=== PATIENT | male | born 1940 | race African-American/Black ===

== ENCOUNTER 2016-08-29 18:13 | Inpatient (IN) | payer MEDICARE ==
--- NOTE | ~2016-08-29 | DS ---
Discharge Summary [address] [place]. [address] NAME: APARNA DICKINSON JR : 40 STATUS : DIS IN PAT#: [id number] AGE: 75 ADM/REG DATE : 08/29/16 MR#: [id number] REPORT SERV DATE: 09/06/16 DICTATED BY: NGUYỄN DUARTE DATE: 09/05/16 REPORT STATUS : Draft TRANSCRIBED BY: MODL DATE: 09/05/16 ADMISSION DATE: 08/29/2016 DISCHARGE DATE: 09/05/2016 REASON FOR ADMISSION: Fall with rhabdomyolysis. HISTORY OF PRESENT ILLNESS: Please refer Dr. Jama's history and physical dated 08/29/2016 for complete details regarding the patient's admission. In brief, the patient is admitted to the Hospitalist Service for management of his fall and his rhabdo. HOSPITAL COURSE: The patient had an uncomplicated hospital course, seen by Dr. Jama and handed off to Dr. Rivera, who assumed care of this patient for the following week. He came in with a mildly elevated CPK of around 20 to 31. He was started on IV fluids. Discharge planning was delayed, as Dr. Rivera had issues reaching the daughter, who then was requesting for inpatient rehab. Physical Therapy evaluated the patient and recommended rehab. [facility] has finally accepted the patient on 09/05/2016, and the patient has reached maximal hospitalization and is stable for discharge. 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 No acute pathology. DISCHARGE MEDICATIONS: Include phenytoin 300 mg every morning. Spending over 30 minutes on discharge planning and coordination of care of Mr. Dickinson. He will be discharged to [facility] in a stable condition. SHERRI Nguyễn Duarte MD / [id number] CC: MD Sen Siddiqi Jr., M.D.
--- NOTE | ~2016-08-29 | HP ---
History And Physical [id number] [place]. [address] NAME: APARNA DICKINSON JR : 40 STATUS : ADM IN [facility]#: [id number] AGE: 75 ADM/REG DATE : 08/29/16 MR#: [id number] REPORT SERV DATE: 08/30/16 DICTATED BY: GUSTABO AGUILAR DATE: 08/29/16 REPORT STATUS : Draft TRANSCRIBED BY: MODL DATE: 08/29/16 DATE OF ADMISSION: 08/29/2016 CHIEF COMPLAINT: Fall at home. HISTORY OF PRESENT ILLNESS: This is a 75-year-old gentleman with history of BPH, possible seizures, CVAs, and possible dementia presenting with a fall at home. Please note, the patient is extremely poor historian and to make it worse the patient is slightly drowsy here in the ER. The patient is actually known to be a poor historian at baseline, according to previous existing medical records. This H and P are formulated from history gathered from ER staff as well as from careful review of the medical records. The patient apparently fell sometime during the day at home. The patient did not apparently lose consciousness, and the patient apparently did not have any pain, but he just sort of laid on the floor until he was found by his daughter. The patient's daughter decided to bring him to the ER for further evaluation and care. At the time of arrival to the ER, the patient did not have any acute complaints. Even during my encounter with the patient, the patient did not have any acute complaints. The patient is really not able to tell me how he went down and he is not able to tell me why he decided to just stay on the floor instead of trying to get up or call for help. In the ER, the patient was found to be afebrile and hemodynamically stable. Initial lab evaluation revealed benign electrolytes and CBC, but he did have elevated CPK level of 2031. CT of the head was nonacute and chest x-ray was nonacute. No other imaging was performed as the patient was not complaining of any focal pain, and the patient did not have any obvious injuries. Internal Medicine consultation was requested for admission of the patient for further evaluation and care. REVIEW OF SYSTEMS: Unable to be obtained from the patient at this time. MEDICATIONS: Dilantin 300 mg p.o. q.a.m. and that is apparently his only medication. ALLERGIES: NKDA. PAST MEDICAL HISTORY: 1. BPH with obstructive uropathy. 2. Seizures. 3. Questionable history of cerebrovascular accident. 4. C-spine stenosis status post C-spine laminectomy. PAST SURGICAL HISTORY: 1. C-spine laminectomy last year. 2. TURP also last year. 3. Although unclear, the patient has an anterior abdominal wall surgical scar. History And Physical [address] [address] NAME: APARNA DICKINSON JR : 40 STATUS : ADM IN PAT#: [id number] AGE: 75 ADM/REG DATE : 08/29/16 MR#: [id number] REPORT SERV DATE: 08/30/16 DICTATED BY: GUSTABO AGUILAR DATE: 08/29/16 REPORT STATUS : Draft TRANSCRIBED BY: MARIUSZ DATE: 08/29/16 FAMILY HISTORY: Unknown at this time. SOCIAL HISTORY: The patient apparently does not smoke or drink alcohol. The patient apparently lives at home by himself, and the patient's daughter helps with the patient's demented . The patient's daughter's phone #[phone] and her name is Shraddha. PHYSICAL EXAMINATION: VITAL SIGNS: Temperature 99.4, blood pressure 132/71, pulse 100, respiratory rate is 20, and saturating 94% on room air. NEUROLOGIC: The patient is alert, but really disoriented x3. The patient exhibits no focal neurologic deficits. The patient is able to move all four extremities freely. GENERAL: The patient is awake, but somnolent. The patient otherwise is in no acute distress, and he is semi-cooperative. NECK: No JVD. No lymphadenopathy. Normal thyroid. CHEST: No midline sternotomy scar and no tenderness to palpation. LUNGS: Clear to auscultation bilaterally with normal respiratory effort on room air. CARDIOVASCULAR: Slightly tachycardic, but otherwise, no murmurs, rubs, or gallops, and PMI is nondisplaced. ABDOMEN: Soft and nontender with active bowel sounds, and no organomegaly. EXTREMITIES: The patient has 2+ bilateral lower extremity pitting edema. Otherwise, no more distal pulses and no calf tenderness. SKIN: Clean, dry, warm, and intact. LABORATORY DATA: Sodium is 140, potassium 3.2, chloride 103, BUN 15, creatinine 1.23, glucose 107, calcium 7.9, and magnesium 1.8. White blood cell count is 6.5, hemoglobin 12.5, and platelets 174. INR is 1.2. CPK is 2031. Troponin is 0.07. Lactate is within normal limits. Dilantin level is within normal limits. Chest x-ray is personally interpreted and it is nonacute. CT of the head was also nonacute. ASSESSMENT: This is a 75-year-old gentleman with history of benign prostatic hypertrophy, seizures, probable dementia, and cerebrovascular accidents presenting with a fall at home. 1. Fall at home with no apparent injuries. There was no additional imaging performed in the ER, as the patient has had no focal complaints of pain and no obvious injuries. 2. Rhabdomyolysis from fall at home. 3. Probable baseline dementia, although, apparently he has not been formally diagnosed. 4. Questionable history of cerebrovascular accidents. 5. Questionable history of seizure. 6. Benign prostatic hypertrophy with obstructive uropathy. 7. C-spine stenosis status post laminectomy. PLAN: My plan is to admit the patient under telemetry monitoring. The patient will be given History And Physical [address] [place]. [address] NAME: ALOKAPARNA BORJA : 40 STATUS : ADM IN PAT#: [id number] AGE: 75 ADM/REG DATE : 08/29/16 MR#: [id number] REPORT SERV DATE: 08/30/16 DICTATED BY: GUSTABO AGUILAR DATE: 08/29/16 REPORT STATUS : Draft TRANSCRIBED BY: MODAmina DATE: 08/29/16 IV fluid resuscitation. The patient will be given a Raza and I will closely monitor in's and out's as well as electrolytes and CPK levels. The patient will also be seen by Physical Therapy. The patient will likely need rehab at discharge. Otherwise, for the rest of stable past medical conditions including seizures, I will continue home medications and/or monitor and treat as needed. Standard DVT prophylaxis. The patient is assumed to be full code at this time. The patient's PCP is unknown at this time. KAYLYN/MARIUSZ Gustabo Aguilar MD / [id number] CC: Sierra Rivera M.D.
--- NOTE | ~2016-08-29 | IDS ---
Interim Discharge Summary [facility] [address] [place]. [address] NAME: APARNA DICKINSON JR : 40 STATUS : ADM IN [facility]#: [id number] AGE: 75 ADM/REG DATE : 08/29/16 MR#: [id number] REPORT SERV DATE: 09/05/16 DICTATED BY: RYNE JONES DATE: 09/04/16 REPORT STATUS : Draft TRANSCRIBED BY: MARIUSZ DATE: 09/04/16 ADMISSION DATE: 08/29/2016 DISCHARGE DATE: DISCHARGE DIAGNOSES: 1. Rhabdomyolysis, acute, status post fall. 2. Debility. 3. History of seizure disorder. HOSPITAL COURSE: A 75 years old male with a past medical history of CVAs in the past as well as seizure disorder, was found on the floor by his daughter for an unknown amount of time. The patient denied having any loss of consciousness, but states that he slid and fell to the floor and denied hitting his head, and the patient was brought to the emergency department. Apparently, the patient lives alone but has a daughter who helps to assist him. The patient was found to have an elevated CPK of 2030 and admitted to the Hospitalist Service for acute rhabdo. Also, family wanted the patient to consider inpatient rehab for generalized weakness. The patient was hydrated appropriately. CPK improved. His home medications with antiepileptic medication also were continued. The patient also was seen by Physical Therapy, and currently at this time, he remains in the hospital awaiting rehab approval. The patient will be followed by Dr. Duarte who will attend to this patient's care. TRINA/MARIUSZ Ryne Jones M.D. / [id number]
[~2016-08-29 18:13] MED LIST: CIP2 PO; D100 PO; PCET PO; PROSCAR5 PO; PYR100B PO
[2016-08-29 18:20] LABS: BASOPHILS 0 %; EOSINOPHILS 0 %; HEMATOCRIT 37.4 % (40.0-51.0); HEMOGLOBIN 12.5 g/dL (13.6-17.8); IMMATURE GRANULOCYTES 0.3 %; IMMATURE GRANULOCYTES ABSOLUTE 0.02 10/3/uL (0.0-0.11); LYMPHOCYTES ABSOLUTE 0.98 10/3/uL (0.67-4.30); MEAN CORPUS HGB CONC 33.4 g/dL (32.0-36.0); MEAN CORPUSCULAR HEMOGLOB 31.9 pg (26.0-34.0); MEAN CORPUSCULAR VOLUME 95.4 fL (80-100); MEAN PLATELET VOLUME 9.1 fL (9.2-13.0); MONOCYTES 11.9 %; MONOCYTES ABSOLUTE 0.78 10/3/uL (0.21-1.20); NEUTROPHILS 72.8 %; NEUTROPHILS ABSOLUTE 4.76 10/3/uL (2.02-8.40); PLATELET COUNT 174 10/3/uL (150-400); RBC DISTRIBUTION WIDTH 13.4 % (12.0-16.0); RED CELL COUNT 3.92 10/6/uL (4.7-6.1); WHITE BLOOD CELLS 6.5 10/3/uL (4.5-10.5)
[2016-08-29 18:21] LABS: MANUAL DIFF NO %
[2016-08-29 18:28] LABS: INTERNATIONAL NORMAL RATI 1.2 UNITS (-); PARTIAL THROMBO TIME 28.7 SEC (22.5-37.2); PROTIME (NOT ORD) 15.1 SEC (12.0-14.5)
[2016-08-29 18:36] LABS: LACTATE 1.1 MMOL/L (0.3-2.4)
[2016-08-29 18:47] LABS: BUN (BLOOD UREA NITROGEN) 15 MG/DL (6-23); CALCIUM, SERUM 7.9 MG/DL (8.5-10.4); CHLORIDE, SERUM 103 MMOL/L (96-112); CO2 (CARBON DIOXIDE) 28 MMOL/L (24-34); CPK 2031 U/L (0-200); CREATININE 1.23 MG/DL (0.70-1.30); DILANTIN (PHENYTOIN) 15.5 MCG/ML (10.0-20.0); GFR AFRICAN AMERICAN 66 ML/MIN (>=60); GFR NON AFRICAN AMERICAN 57 ML/MIN (>=60); GLUCOSE, SERUM 107 MG/DL (60-99); POTASSIUM, SERUM 3.2 MMOL/L (3.5-5.3); SODIUM, SERUM 140 MMOL/L (135-148)
[2016-08-29 18:49] LABS: TROPONIN I 0.07 NG/ML (<0.05)
[2016-08-29 18:50] LABS: CHEST PAIN PROFILE TAT 0 Hrs 35 Mins
[2016-08-29] MEDS ORDERED: D100 PO (19:17)
[2016-08-30 02:37] LABS: TROPONIN I 0.05 NG/ML (<0.05); ULTRASENSITIVE TSH 1.43 MCIU/ML (0.358-3.740)
[2016-08-30 07:21] LABS: BASOPHILS 0.2 %; BASOPHILS ABSOLUTE 0.01 10/3/uL (0.0-0.16); EOSINOPHILS 0.4 %; EOSINOPHILS ABSOLUTE 0.02 10/3/uL (0.0-0.53); HEMATOCRIT 33.8 % (40.0-51.0); HEMOGLOBIN 11.2 g/dL (13.6-17.8); LYMPHOCYTES ABSOLUTE 1.19 10/3/uL (0.67-4.30); MEAN CORPUS HGB CONC 33.1 g/dL (32.0-36.0); MEAN CORPUSCULAR HEMOGLOB 31.7 pg (26.0-34.0); MEAN CORPUSCULAR VOLUME 95.8 fL (80-100); MEAN PLATELET VOLUME 9.2 fL (9.2-13.0); MONOCYTES 11.8 %; MONOCYTES ABSOLUTE 0.54 10/3/uL (0.21-1.20); NEUTROPHILS 61.6 %; NEUTROPHILS ABSOLUTE 2.81 10/3/uL (2.02-8.40); PLATELET COUNT 170 10/3/uL (150-400); RBC DISTRIBUTION WIDTH 13.6 % (12.0-16.0); RED CELL COUNT 3.53 10/6/uL (4.7-6.1); WHITE BLOOD CELLS 4.6 10/3/uL (4.5-10.5)
[2016-08-30 07:24] LABS: MANUAL DIFF NO %
[2016-08-30 07:47] LABS: A/G RATIO 0.6 (0.7-1.9); ALBUMIN 2.6 G/DL (3.5-5.0); ALKALINE PHOSPHATASE 68 U/L (45-117); BUN (BLOOD UREA NITROGEN) 15 MG/DL (6-23); CALCIUM, SERUM 7.4 MG/DL (8.5-10.4); CHLORIDE, SERUM 108 MMOL/L (96-112); CK-MB 10.9 NG/ML; CKMB INDEX (NOT ORD) 0.5; CO2 (CARBON DIOXIDE) 24 MMOL/L (24-34); CPK 2025 U/L (0-200); CREATININE 1.13 MG/DL (0.70-1.30); GFR AFRICAN AMERICAN 73 ML/MIN (>=60); GFR NON AFRICAN AMERICAN 63 ML/MIN (>=60); GLOBULIN 4.4 G/DL (2.5-4.1); GLUCOSE, SERUM 139 MG/DL (60-99); POTASSIUM, SERUM 3.3 MMOL/L (3.5-5.3); SGOT(AST) 59 U/L (5-40); SGPT(ALT) 30 U/L (5-65); SODIUM, SERUM 143 MMOL/L (135-148); TOTAL BILIRUBIN 0.5 MG/DL (0-1.2); TROPONIN I 0.06 NG/ML (<0.05)
[2016-08-31 07:16] LABS: CALCIUM, SERUM 7.6 MG/DL (8.5-10.4); CHLORIDE, SERUM 113 MMOL/L (96-112); CO2 (CARBON DIOXIDE) 25 MMOL/L (24-34); CPK 1396 U/L (0-200); CREATININE 1.01 MG/DL (0.70-1.30); GFR AFRICAN AMERICAN 84 ML/MIN (>=60); GFR NON AFRICAN AMERICAN 72 ML/MIN (>=60); POTASSIUM, SERUM 3.4 MMOL/L (3.5-5.3); SODIUM, SERUM 145 MMOL/L (135-148)
[2016-08-31 07:17] LABS: BUN (BLOOD UREA NITROGEN) 11 MG/DL (6-23); GLUCOSE, SERUM 96 MG/DL (60-99)
[2016-09-01 06:57] LABS: BUN (BLOOD UREA NITROGEN) 10 MG/DL (6-23); CALCIUM, SERUM 7.6 MG/DL (8.5-10.4); CHLORIDE, SERUM 111 MMOL/L (96-112); CO2 (CARBON DIOXIDE) 27 MMOL/L (24-34); GLUCOSE, SERUM 93 MG/DL (60-99); POTASSIUM, SERUM 3.9 MMOL/L (3.5-5.3); SODIUM, SERUM 143 MMOL/L (135-148)
[2016-09-01 07:03] LABS: CPK 879 U/L (0-200); CREATININE 1.01 MG/DL (0.70-1.30); GFR AFRICAN AMERICAN 84 ML/MIN (>=60); GFR NON AFRICAN AMERICAN 72 ML/MIN (>=60)
== END 2016-09-05 17:07 | DRG 558 ==
LOC: ER 18:13 → 7NO 21:10
PROVIDERS: Internal Medicine; Specialist
DX: M62.82 Rhabdomyolysis (principal); F03.90 Unspecified dementia, unspecified severity, without behavioral disturbance, psychotic disturbance, mood disturbance, and anxiety; G40.909 Epilepsy, unspecified, not intractable, without status epilepticus; N40.0 Benign prostatic hyperplasia without lower urinary tract symptoms; E87.6 Hypokalemia; W01.0XXA Fall on same level from slipping, tripping and stumbling without subsequent striking against object, initial encounter
CPT/HCPCS: 70450; 71010; 80048; 80053; 80185; 81001; 82550; 82553; 83605; 83735; 84132; 84443; 84484; 85025; 85610; 85730; 87040; 97162-GP; 97530-GP; 99285; A9270-GY; G8978-CK-GP; G8979-CJ-GP; J3411